=== PATIENT | female | born 1970 | race Caucasian/White ===

== ENCOUNTER 2016-10-23 14:32 | Emergency (ER) | payer MEDICAID, OTHER ==
[~2016-10-23] VITALS: Ht 165.1 cm; Wt 57.0 kg
[2016-10-23 14:35] VITALS: BP 126/72; PULSE 101; RESP 16; TEMP 98.7; O2SAT 96
--- NOTE | 2016-10-23 14:41 | PD ---
Physical Exam Time Seen by Provider: 14:38 Narrative Pt presents to the emergency department for evaluation abdominal pain since this morning. She has had associated nausea, vomiting, diarrhea. Denies fever. VSS. Awaiting bed placement. Data Data Last Documented VS Vital Signs Date Time Temp Pulse Resp B/P Pulse Ox O2 Delivery O2 Flow Rate FiO2 10/23/16 14:35 98.7 101 16 126/72 96 Room Air [facility] Supervised Visit with TED: Ciara Duncan Oct 23, 2016 14:41
[2016-10-23] MEDS ORDERED: SODIUM CHLOR 0.9% 1000 ML INJ 1,000 ML IV SCH (14:52)
[2016-10-23] MEDS ORDERED: SAPH10SU3 SL (14:54)
[2016-10-23] MEDS ORDERED: GABA800T PO (14:54)
[2016-10-23] MEDS ORDERED: LAMO100 PO (14:54)
--- NOTE | 2016-10-23 14:55 | PD ---
HPI Chief Complaint: Abdominal Pain Time Seen by Provider: 14:48 Travel History International Travel<30 days: No Contact w/Intl Traveler<30days: No Traveled to known affect area: No History of Present Illness HPI This is a 46-year-old female who presents to the emergency department having been woken up from sleep with severe abdominal pain in the middle of her abdomen , constant, cramping, associated with multiple episodes of vomiting and 6 episodes of loose stool. She denies any blood in her stool. She denies any fevers or chills. She's never had symptoms like this before. She says she just recently returned from [place] where she was caring for her father that was sick in the hospital. Otherwise she denies any recent antibiotic use, recent international travel or questionable food exposure. She has had a hysterectomy in the past. PFSH Past Medical History Bipolar Disorder: Yes Depression: Yes Diminished Hearing: No Fibromyalgia: Yes Tetanus Vaccination: Never Vaccinated Influenza Vaccination: No ?: Not Past Surgical History Hysterectomy: Yes Other Surgery: Yes (cervical and lumbar fusion) Social History Alcohol Use: No Tobacco Use: Yes (/2 ppd) Substance Use: No Allergies-Medications (Allergen,Severity, Reaction): Coded Allergies: Cipro (Verified Allergy, Intermediate, 10/23/16) HEART PALPITATIONS Reported Meds & Prescriptions Reported Meds & Active Scripts Active Reported Saphris (Asenapine) 10 Mg Subl 20 Mg SL BID Lamictal (Lamotrigine) 100 Mg Tab 100 Mg PO BID Gabapentin 800 Mg Tab 800 Mg PO TID Review of Systems Except as stated in HPI: all other systems reviewed are Neg Physical Exam Narrative GENERAL: Uncomfortable appearing. SKIN: Focused skin assessment warm and dry. HEAD: Atraumatic. Normocephalic. EYES: Pupils equal and round. No injection or drainage. ENT: Moist mucous membranes NECK: Trachea midline. CARDIOVASCULAR: Regular rate and rhythm. No murmur appreciated. RESPIRATORY: Clear to auscultation. Breath sounds equal bilaterally. GASTROINTESTINAL: Abdomen soft, tender to palpation in the periumbilical region with no rebound or guarding. MUSCULOSKELETAL: No obvious deformities. NEUROLOGICAL: Awake and alert. No obvious cranial nerve deficits. Moving all extremities. PSYCHIATRIC: Appropriate mood and affect; insight and judgment normal. Data Data Last Documented VS Vital Signs Date Time Temp Pulse Resp B/P Pulse Ox O2 Delivery O2 Flow Rate FiO2 10/23/16 15:17 97 Room Air 10/23/16 14:51 18 10/23/16 14:35 98.7 101 126/72 Orders Complete Blood Count With Diff (10/23/16 14:52) Comprehensive Metabolic Panel (10/23/16 14:52) Lipase (10/23/16 14:52) Urinalysis - C+S If Indicated (10/23/16 14:52) Ct Abd/Pel W Iv Contrast(Rout) (10/23/16 14:52) Iv Access Insert/Monitor (10/23/16 14:52) Ecg Monitoring (10/23/16 14:52) Oximetry (10/23/16 14:52) Ondansetron Inj (Zofran Inj) (10/23/16 15:00) Sodium Chlor 0.9% 1000 Ml Inj (Ns 1000 M (10/23/16 14:52) Sodium Chloride 0.9% Flush (Ns Flush) (10/23/16 15:00) Hydromorphone Pf Inj (Dilaudid Pf Inj) (10/23/16 15:00) Iohexol 350 Inj (Omnipaque 350 Inj) (10/23/16 15:15) Labs Laboratory Tests Test 10/23/16 10/23/16 14:50 15:00 White Blood Count 13.3 TH/MM3 Red Blood Count 4.86 MIL/MM3 Hemoglobin 15.8 GM/DL Hematocrit 45.5 % Mean Corpuscular Volume 93.4 FL Mean Corpuscular Hemoglobin 32.5 PG Mean Corpuscular Hemoglobin 34.8 % Concent Red Cell Distribution Width 12.6 % Platelet Count 309 TH/MM3 Mean Platelet Volume 8.4 FL Neutrophils (%) (Auto) 94.1 % Lymphocytes (%) (Auto) 1.6 % Monocytes (%) (Auto) 3.7 % Eosinophils (%) (Auto) 0.0 % Basophils (%) (Auto) 0.6 % Neutrophils # (Auto) 12.5 TH/MM3 Lymphocytes # (Auto) 0.2 TH/MM3 Monocytes # (Auto) 0.5 TH/MM3 Eosinophils # (Auto) 0.0 TH/MM3 Basophils # (Auto) 0.1 TH/MM3 CBC Comment DIFF FINAL Differential Comment Sodium Level 141 MEQ/L Potassium Level 3.7 MEQ/L Chloride Level 107 MEQ/L Carbon Dioxide Level 24.2 MEQ/L Anion Gap 10 MEQ/L Blood Urea Nitrogen 16 MG/DL Creatinine 1.08 MG/DL Estimat Glomerular Filtration 54 ML/MIN Rate Random Glucose 146 MG/DL Calcium Level 9.1 MG/DL Total Bilirubin 0.5 MG/DL Aspartate Amino Transf 11 U/L (AST/SGOT) Alanine Aminotransferase 15 U/L (ALT/SGPT) Alkaline Phosphatase 66 U/L Total Protein 7.5 GM/DL Albumin 3.8 GM/DL Lipase 97 U/L Urine Color YELLOW Urine Turbidity HAZY Urine pH 5.5 Urine Specific [place] 1.031 Urine Protein 30 mg/dL Urine Glucose (UA) NEG mg/dL Urine Ketones TRACE mg/dL Urine Occult Blood NEG Urine Nitrite NEG Urine Bilirubin NEG Urine Urobilinogen LESS THAN 2.0 MG/DL Urine Leukocyte Esterase NEG Urine RBC 3 /hpf Urine WBC 3 /hpf Urine Squamous Epithelial 16 /hpf Cells Urine Bacteria OCC /hpf Urine Mucus MOD /lpf Microscopic Urinalysis Comment CULT NOT INDICATED MDM Medical Decision Making Medical Screen Exam Complete: Yes Emergency Medical Condition: Yes Interpretation(s) Afebrile, mild tachycardia, normotensive Leukocytosis 94% neutrophils Electrolytes are reassuring Lipase is normal Urinalysis is negative for infection Last 24 hours Impressions Abdomen/Pelvis CT 10/23/16 1452 Signed Impressions: Service Date/Time: Friday, October 23, 2016 15:12 - CONCLUSION: 1. Mild hepatic steatosis. 2. Mildly complex cyst right upper pole kidney as noted above. 3. No inflammatory changes are seen. Dwain Ellison MD Differential Diagnosis Gastroenteritis, colitis, appendicitis, cholecystitis, dehydration Narrative Course This is a 46-year-old female who presents to the emergency department with nausea vomiting and diarrhea which has been present since early this morning. She is placed in a monitor and an IV was established. Labs were obtained which were all reassuring. Urinalysis demonstrates no urine infection. CT abdomen and pelvis was obtained which was reassuring. Patient feels much better after IV pain medication, antiemetics and IV hydration. I suspect she has a viral gastroenteritis. She'll be discharged home on symptomatic management. Diagnosis Primary Impression: Viral gastroenteritis Patient Instructions: General Instructions Additional Instructions: If you develop lightheadedness, dizziness, persistent vomiting, inability to eat , or severe abdominal pain return to the emergency department. Followup with your primary care physician in 2-3 days if your symptoms have not resolved. Wash your hands agressively after using the restroom as to not spread your illness to others. Do not return to work until your symptoms have resolved. Take Zofran as needed for nausea. Med/Other Pt SpecificInfo: Prescription(s) given Scripts Naproxen 500 Mg Iax780 Mg PO BID PRN (PAIN SCALE 4 TO 10) #20 TAB Prov:Radha Glass MD 10/23/16 Dicyclomine (Bentyl)20 Mg Tab20 Mg PO QID PRN (CRAMPS) #20 TAB Prov:Radha Glass MD 10/23/16 Ondansetron Odt (Zofran Odt)4 Mg Tab4 Mg SL Q6HR PRN (Nausea/Vomiting) #15 TAB Prov:Radha Glass MD 10/23/16 Disposition: 01 DISCHARGE HOME Condition: Stable Radha Glass MD Oct 23, 2016 14:55
[2016-10-23] MEDS ORDERED: ONDANSETRON HCL 4 MG/2 ML VIAL IVP ONE (15:00)
[2016-10-23] MEDS ORDERED: HYDROmorphone HCL PF 1 MG/ML VIAL IVS ONE (15:00)
[2016-10-23] MEDS ORDERED: SODIUM CHLORIDE 0.9% FLUSH 10 ML FLUSH IV FLUSH PRN (15:00)
[2016-10-23] MEDS ORDERED: IOHEXOL 350 MG/ML 10 ML VIAL (for RAD DIAG) IV ONE (15:15)
[2016-10-23 15:17] VITALS: O2SAT 97
[2016-10-23 15:17] LABS: AUTOMATED NEUTROPHIL # 12.5 TH/MM3 (1.8-7.7); BASOPHIL # 0.1 TH/MM3 (0-0.2); BASOPHIL % 0.6 % (0.0-2.0); HEMATOCRIT 45.5 % (35.0-46.0); HEMO FLAGS DIFF FINAL; LYMPH % 1.6 % (9.0-44.0); LYMPHOCYTE # 0.2 TH/MM3 (1.0-4.8); MEAN CELL VOLUME 93.4 FL (80.0-100.0); MEAN CORPUSCULAR HEMOGLOBIN 32.5 PG (27.0-34.0); MEAN CORPUSCULAR HGB CONC 34.8 % (32.0-36.0); MONO % 3.7 % (0.0-8.0); NEUT % 94.1 % (16.0-70.0); PLATELET COUNT 309 TH/MM3 (150-450); RED BLOOD COUNT 4.86 MIL/MM3 (4.00-5.30); RED CELL DISTRIBUTION WIDTH 12.6 % (11.6-17.2); WHITE BLOOD COUNT 13.3 TH/MM3 (4.0-11.0)
--- NOTE | 2016-10-23 15:27 | RADRPT ---
EXAM DATE/TIME: 10/23/2016 15:12 [place] COMPARISON: No previous studies available for comparison. INDICATIONS : Abdominal pain with nausea and vomiting. IV CONTRAST: 100 cc Omnipaque 350 (iohexol) IV ORAL CONTRAST: No oral contrast ingested. RADIATION DOSE: 4.70 CTDIvol (mGy) MEDICAL HISTORY : None SURGICAL HISTORY : Hysterectomy. Lumbar fusion. ENCOUNTER: Initial ACUITY: 1 day PAIN SCALE: 7/10 LOCATION: Bilateral lower quadrant TECHNIQUE: Volumetric scanning of the abdomen and pelvis was performed. Using automated exposure control and ad justment of the mA and/or kV according to patient size, radiation dose was kept as low as reasonably achievable to obtain optimal diagnostic quality images. FINDINGS: No pleural or pericardial effusions. There is a large thinly septated cyst at the upper pole of the r ight kidney measuring 9 x 7 cm in transverse and AP dimension. Thin peripheral calcifications are see n. Left kidney unremarkable. Spleen, pancreas, gallbladder, adrenal glands are normal. Mild fatty inf iltration of the liver is present. There are no signs of bowel obstruction. Urinary bladder is unrema rkable. The patient is status post hysterectomy. Appendix normal. Small and large bowel are unremarka ble. Lung bases are clear. Osseous structures demonstrate previous intervertebral fusion at L2-3 and L3-4. CONCLUSION: 1. Mild hepatic steatosis. 2. Mildly complex cyst right upper pole kidney as noted above. 3. No inflammatory changes are seen. Dwain Ellison MD on October 23, 2016 at 15:23 Board Certified Radiologist. This report was verified electronically.
[2016-10-23 15:28] LABS: BACTERIA, URINE OCC /hpf; BLOOD, URINE NEG (NEG); COMMENT (UR) CULT NOT INDICATED; CULTURE IF INDICATED CULT NOT INDICATED; GLUCOSE,URINE NEG (NEG); KETONE, URINE TRACE mg/dL (NEG); MUCUS URINE MOD /lpf (OCC); NITRITE,URINE NEG (NEG); PH, URINE 5.5 (5.0-8.5); SQUAMOUS EPITHELIAL CELL URINE 16 /hpf (0-5); URINE COLOR YELLOW (YELLW/STRAW)
[2016-10-23 15:36] LABS: ALT (GPT) 15 U/L (10-53); ANION GAP 10 MEQ/L (5-15); AST (GOT) 11 U/L (15-37); BICARBONATE 24.2 MEQ/L (21.0-32.0); BLOOD UREA NITROGEN 16 MG/DL (7-18); CHLORIDE 107 MEQ/L (98-107); GLOMERULAR FILTRATION RATE 54 ML/MIN (>89); POTASSIUM 3.7 MEQ/L (3.5-5.1); SODIUM (NA) 141 MEQ/L (136-145)
[2016-10-23 15:38] LABS: ALKALINE PHOSPHATASE 66 U/L (45-117); TOTAL BILIRUBIN ADULT 0.5 MG/DL (0.2-1.0)
[2016-10-23] MEDS ORDERED: ZOFR4TAB3 SL (15:53)
[2016-10-23] MEDS ORDERED: NAPR500T PO (15:53)
[2016-10-23] MEDS ORDERED: BENT20TA PO (15:53)
[2016-10-23] MEDS ORDERED: KETOROLAC TROMETHAMINE 30 MG/ML (IVP) VIAL IV PUSH ONE (16:00)
[2016-10-23] MEDS ORDERED: DICYCLOMINE HCL 20 MG/2 ML VIAL IM ONE (16:00)
== END 2016-10-23 16:40 | disposition home or self-care (01) ==
LOC: NEPD 14:32
DX: A08.4 Viral intestinal infection, unspecified (principal)
CPT/HCPCS: 74177; 80053; 81001; 83690; 85025; 96372; 96374; 96375; 99284; J0500; J1170; J1885; J2405; J7030; Q9967